=== PATIENT | male | born 1965 | race Two or more races ===

== ENCOUNTER 2020-10-24 11:01 | Emergency (ER) | payer OTHER ==
[~2020-10-24] VITALS: Ht 172.7 cm; Wt 86.9 kg
--- NOTE | 2020-10-24 11:08 | NUR ---
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
--- NOTE | 2020-10-24 11:59 | NUR ---
PT BIB SELF VIA POV. PER PT HE HAS HAD DIZZINESS SINCE HE 0400 YESTERDAY. PER PT NO NUMBNESS OR TINGLING ANYWHERE. PT STATES "THE ROOM JUST STARTS TO SPIN REALLY BAD WHEN I STAND UP OR LAY DOWN". PT SITTING UPRIGHT IN [facility], MONTIORING IN PLACE, [place] AT THIS TIME, TM.
[2020-10-24] MEDS ORDERED: MECLIZINE CHEWABLE 25 MG TAB ONE (12:56)
--- NOTE | 2020-10-24 12:57 | NUR ---
ASSUMED CARE OF PATIENT. REPORT GIVEN FROM FITZ BRANDON
[2020-10-24] MEDS ORDERED: SODIUM CHLORIDE 0.9% 1,000ML IVBOLUS ONE (13:00)
[2020-10-24] MEDS ORDERED: SODIUM CHLORIDE FLUSH 10ML SYR IVF ONE (13:00)
[2020-10-24] MEDS ORDERED: MECLIZINE CHEWABLE 25 MG TAB PO ONE (13:00)
[2020-10-24 13:28] LABS: BASOPHILS % (AUTO) 0 % (0-1); EOSINOPHILS % (AUTO) 1 % (1-7); LYMPHOCYTES % (AUTO) 27 % (22-44); MEAN CORPUSCULAR HEMOGLOBIN 27.5 pg (27.5-34.5); MEAN CORPUSCULAR HGB CONC 33.4 g/dL (33.2-36.2); MEAN PLATELET VOLUME 10.2 fL (7.4-10.4); MONOCYTES % (AUTO) 7 % (2-9); NEUTROPHILS % (AUTO) 65 % (42-75); PLATELET COUNT 144 x10^3/uL (130-400); RED CELL DISTRIBUTION WIDTH 15.5 % (9.4-14.8)
[2020-10-24 13:34] LABS: ALANINE AMINOTRANSFERASE 24 U/L (12-78); ALBUMIN 3.7 g/dL (3.4-5.0); ANION GAP 8 mmol/L (5-15); CALCIUM 8.2 mg/dL (8.5-10.1); CHLORIDE 108 mmol/L (98-107)
[2020-10-24 13:36] LABS: ALKALINE PHOSPHATASE 61 U/L (45-117); BILIRUBIN,TOTAL 0.4 mg/dL (0.2-1.0); TOTAL PROTEIN 7.9 g/dL (6.4-8.2)
--- NOTE | 2020-10-24 13:48 | NUR ---
PT REPORTS HE IS DIZZY WHEN HE LAYS FLAT. VS STABLE. NO ACUTE DISTRESS NOTED. CALL LIGHT IN PLACE. WILL CONTINUE TO MONITOR.
--- NOTE | 2020-10-24 14:33 | NUR ---
PT REPORTS HE IS FEELING A LITTLE LESS DIZZY. VS STABLE. CALL LIGHT IN PLACE. WILL CONTINUE TO MONITOR.
[2020-10-24 15:36] VITALS: BP 108/78
== END 2020-10-24 15:39 | disposition home or self-care (01) ==
LOC: ED 15:28
DX: H81.10 Benign paroxysmal vertigo, unspecified ear (principal); R11.2 Nausea with vomiting, unspecified; R94.31 Abnormal electrocardiogram [ECG] [EKG]
CPT/HCPCS: 36415; 80053; 85025; 93005; 96360; 99285; J7030